=== PATIENT | female | born 1975 | race Caucasian/White ===

== ENCOUNTER 2017-01-10 17:45 | Emergency (ER) | payer OTHER ==
--- NOTE | 2017-01-10 18:03 | PDOC ---
Attending Attestation - Resident Resident Name: Roberth Yates - ED Attending Attestation I have performed the following: I have examined & evaluated the patient, The case was reviewed & discussed with the resident, I agree w/resident's findings & plan, Exceptions are as noted
[2017-01-10 18:07] VITALS: BP 168/100; PULSE 65; TEMP 98.2; BMI 31.7
--- NOTE | 2017-01-10 18:21 | PDOC ---
History of Present Illness - General Chief Complaint: Pain Stated Complaint: RIGHT EAR, JAW, CHEST, EPIGASTRIC, BACK PAIN Time Seen by Provider: 01/10/17 18:02 - History of Present Illness Initial Comments: 01/10/17 18:38 Chief complaint: Epigastric pain, ear and neck pain History of present illness: While driving home in the car from [place], developed sudden pain anterior to the left ear and jaw, then sharp epigastric pain and lower chest pain radiating to the right around the lower rib cage to the mid back. This lasted at its original and density for around 20 minutes, then completely resolved. She has had no recurrent pain in any other face, chest , or abdomen. There was no nausea vomiting or diaphoresis. There was no shortness of breath. There has been no fever or cough Review of systems: As noted above. In addition, the patient has an IUD, last menstrual period was approximately 2-3 weeks ago, she has had a gastric sleeve by Dr. Linton and has lost 30 pounds. She has no GERD or dyspepsia. Remainder systems reviewed and found to be negative Past medical history: Gastric sleeve as above. Denies diabetes, high cholesterol , hypertension, heart problems or pain of any kind. No medication Social/family history: Works at [employer], no alcohol tobacco or nonprescription drugs, fully active without disability. Father had CABG at age 80. Mother and siblings without heart disease. Physical exam: Alert and oriented well-developed well-nourished no acute distress cheerful and cooperative. Asymptomatic now. Appears somewhat anxious Afebrile, vital signs normal PERRLA, fundi benign, ENT clear Neck supple without bruit mass or nodes Chest clear with full breath sounds throughout bilaterally. CV S1 and S2 normal without murmur rub or gallop pulses full and symmetric no JVD or edema no bruits 63 and regular Abdomen soft nontender without mass or organomegaly. Nondistended. Bowel sounds normal Neurological C2 to 12 intact. Strength full and symmetric. No focal sensory or motor deficits. Gait stable and unimpaired Extremities no CCE Skin clear, no rash, adequate turgor and wet mucous membranes Impression: Likely the pain is musculoskeletal or GI in origin. No history of cardiac disease or significant risk factors. Plan: EKG and enzymes, CBC and chemistries, Protonix, and observation. Further evaluation depending on results. Past History - Past Medical History Allergies/Adverse Reactions: Allergies Allergy/AdvReac Type Severity Reaction Status Date / Time No Known Allergies Allergy Verified 01/10/17 17:57 Home Medications: Ambulatory Orders No Home Medications 0 dose .ROUTE UTDICT 01/08/12 Anemia: No Asthma: No Cancer: No Cardiac Disorders: No CVA: No COPD: No CHF: No Dementia: No Diabetes: No GI Disorders: No Disorders: No HTN: No Hypercholesterolemia: No Liver Disease: No Seizures: No Thyroid Disease: No - Surgical History Abdominal Surgery: No Appendectomy: No Cardiac Surgery: No Cholecystectomy: No Gastric Stapling: Yes Lung Surgery: No Neurologic Surgery: No Orthopedic Surgery: Yes (rt bunionectomy X 2) - Immunization History Td Vaccination: Yes Immunization Up to Date: No - Psycho/Social/Smoking Cessation Hx Anxiety: No Suicidal Ideation: No Smoking Status: No Smoking History: Never smoked Number of Cigarettes Smoked Daily: 0 Hx Alcohol Use: No Drug/Substance Use Hx: No Substance Use Type: None Hx Substance Use Treatment: No Cardiac Specific PMH - Complaint Specific PMHX Pacemaker: No *Physical Exam - Vital Signs Last Vital Signs Temp Pulse Resp BP Pulse Ox 98.2 F 65 15 168/100 100 01/10/17 17:53 01/10/17 17:53 01/10/17 17:53 01/10/17 17:53 01/10/17 17:53 ED Treatment Course - ADDITIONAL ORDERS Additional order review: Laboratory Results 01/10/17 18:20 Urine Color Yellow Urine Appearance Clear Urine pH 5.5 Ur Specific [place] 1.025 Urine Protein Negative Urine Glucose (UA) Negative Urine Ketones Negative Urine Blood Negative Urine Nitrite Negative Urine Bilirubin Negative Urine Urobilinogen 1.0 Ur Leukocyte Esterase Negative Urine HCG, Qual Negative *DC/Admit/Observation/Transfer - Discharge Dispostion Condition at time of disposition: Good
[2017-01-10 18:37] LABS: PH,URINE 5.5 (4.5-8); URINE APPEARANCE Clear; URINE BILIRUBIN Negative (NEGATIVE); URINE BLOOD Negative (NEGATIVE); URINE COLOR YELLOW; URINE GLUCOSE (UA) Negative (NEGATIVE); URINE KETONE Negative (NEGATIVE); URINE LEUK ESTERASE Negative (NEGATIVE); URINE NITRITE Negative (NEGATIVE); URINE PROTEIN Negative (NEGATIVE)
[2017-01-10] MEDS ORDERED: PANTOPRAZOLE SODIUM 40 MG in SODIUM CHLORIDE 100 ML IVPB ONE (18:44)
[2017-01-10] MEDS ORDERED: PANTOPRAZOLE SODIUM 40 MG VIAL ONE (19:01)
--- NOTE | 2017-01-10 19:22 | PDOC ---
*Physical Exam - Vital Signs Last Vital Signs Temp Pulse Resp BP Pulse Ox 98.2 F 65 15 168/100 100 01/10/17 17:53 01/10/17 17:53 01/10/17 17:53 01/10/17 17:53 01/10/17 17:53 Heart Score/ECG Review - History History: Slightly suspicious - Electrocardiogram EKG: Normal - Age Age: </= 45 - Risk Factors Based on the list above the patient has:: No risk factors known - Troponin Troponin: </= normal limit - Score Heart Score - Total: 0 ED Treatment Course - LABORATORY CBC & Chemistry Diagram: 01/10/17 18:55 01/10/17 18:55 - ADDITIONAL ORDERS Additional order review: Laboratory Results 01/10/17 18:20 Urine Color Yellow Urine Appearance Clear Urine pH 5.5 Ur Specific [place] 1.025 Urine Protein Negative Urine Glucose (UA) Negative Urine Ketones Negative Urine Blood Negative Urine Nitrite Negative Urine Bilirubin Negative Urine Urobilinogen 1.0 Ur Leukocyte Esterase Negative Urine HCG, Qual Negative - Medications Given in the ED: ED Medications Discontinued Medications Generic Name Dose Route Start Last Admin Trade Name Freq PRN Reason Stop Dose Admin Pantoprazole Sodium 40 mg/ 100 mls @ 200 mls/hr 01/10/17 18:44 01/10/17 19:05 Sodium Chloride IVPB 01/10/17 19:13 200 mls/hr ONCE ONE Administration Progress Note - Progress Note Progress Note: Care of this patient was transferred to sd from Dr. Haskins at 1900 hrs. Patient is a 41-year-old female who comes in complaining of approximately 20 minutes of epigastric pain radiating to her back as well as some jaw pain. Patient was concerned that it could have a cardiac origin. Patient however has no cardiac risk factors, her EKG is normal, and her heart score is 0. Patient has blood work and troponin pending if they are all negative patient will be discharged home and follow-up with her primary care doctor. *DC/Admit/Observation/Transfer Diagnosis at time of Disposition: Epigastric pain - Discharge Dispostion Disposition: HOME Condition at time of disposition: Good Admit: No - Patient Instructions Additional Instructions: Return to the emergency department immediately with ANY new, persistent or worsening symptoms. Continue any medications as previously prescribed by your physician. You should follow up with your primary doctor as soon as possible regarding today's emergency department visit. . Please make sure your doctor reviews the results of your emergency evaluation. Thank you for coming to the Emergency Department today for your care. It was a pleasure to see you today. Please note that your evaluation is INCOMPLETE until you follow-up with your doctor.
[2017-01-10 19:30] LABS: BASOPHIL 0.1 % (0-2.0); EOSINOPHIL 1.3 % (0-4.5); MCH 29.6 pg (25.7-33.7); MCHC 35.3 g/dl (32.0-36.0); MEAN CELL VOLUME 83.7 fl (80-96); MEAN PLT VOLUME 7.9 fl (7.5-11.1); NEUTROPHILS 63.5 % (42.8-82.8); PLATELET COUNT 240 K/MM3 (134-434); RDW 11.9 % (11.6-15.6); WHITE BLOOD COUNT 12.7 K/mm3 (4.0-10.8)
[2017-01-10 19:36] LABS: ALBUMIN 3.9 g/dl (3.5-5.0); ALK PHOS 72 U/L (32-92); ANION GAP 6 (8-16); BILIRUBIN,TOTAL 0.9 mg/dl (0.2-1.0); CALCIUM 9.3 mg/dl (8.4-10.2); CO2 27 mmol/L (22-28); CPK 49 IU/L (26-192); CREATININE 0.6 mg/dl (0.6-1.3); GLUCOSE,RANDOM 84 mg/dl (74-106); SGOT/AST 17 U/L (10-42); SGPT/ALT 20 U/L (10-40); TOT PROT 6.8 g/dl (6.4-8.3)
[2017-01-10 19:49] LABS: TROPONIN I (DFP) < 0.03 ng/ml (0.03-0.50)
--- NOTE | 2017-01-12 19:19 | EKG ---
Test Reason : Blood Pressure : / mmHG Vent. Rate : 071 BPM Atrial Rate : 071 BPM P-R Int : 158 ms QRS Dur : 082 ms QT Int : 406 ms P-R-T Axes : 036 009 026 degrees QTc Int : 441 ms SINUS RHYTHM WITH SINUS ARRHYTHMIA LOW VOLTAGE QRS WHEN COMPARED WITH ECG OF 07-JAN-2012 23:10, NO SIGNIFICANT CHANGE WAS FOUND Confirmed by LONG DÍAZ MD ([id number]) on 01/12/2017 7:19:14 PM Referred By: DERRICK Confirmed By:LONG DÍAZ MD
== END 2017-01-10 19:58 | disposition home or self-care (01) ==
LOC: FER 17:45
PROC: 3E033GC Introduction of Other Therapeutic Substance into Peripheral Vein, Percutaneous Approach (ICD-10-PCS; principal; 2017-01-10)
DX: R10.13 Epigastric pain (principal); Z98.84 Bariatric surgery status
CPT/HCPCS: 36415; 80053; 81003; 84484; 84703; 85025; 93005; 99284-25